=== PATIENT | male | born 1965 | race Caucasian/White ===

== ENCOUNTER → 2016-10-05 15:04 | Outpatient (CLI) | payer OTHER ==
[2015-11-18 08:41] VITALS: BMI 34.6
[~2016-10-05 15:04] MED LIST: ANDROGEL150 GM TP; ATRIPLA TABLET1 TAB PO; BYSTOLIC5 MG PO; FLUTICASONE PRO16 GM NASAL; NORVASC10 MG PO; REVATIO20 MG PO
== END | disposition home or self-care (01) ==
LOC: D.LABREF 15:04
DX: E29.1 Testicular hypofunction (principal)

== ENCOUNTER → 2017-03-13 10:47 | Outpatient (CLI) | payer OTHER ==
--- NOTE | ~2017-03-13 | HEMODYNAMI ---
PATIENT:SOILA HAQ MEDICAL RECORD: [id number] : 65 LOCATION:[facility] ADMISSION DATE: 03/13/17 Generatedon:03/13/201713:47 Patient name: SOILA HAQ Patient #: [id number] SSN: : 1965 Date of study: 03/13/2017 Page: Of Hemodynamic Procedure Report Patient Data Patient Demographics Procedure consent was obtained First Name: SOILA Gender: Male Last Name: EUN : 1965 Middle Initial: FLORA Age: 52 year(s) Patient #: [id number] Race: Unknown Additional ID: [id number] Contact details Address: [address] [place] [address] State: [place] City: [place] Zip code: [address] Past Medical History Allergies: No known allergies Admission Admission Data Admission Date: 03/13/2017 Admission Time: 10:47 Procedure Procedure Types Cath Procedure Diagnostic Procedure Right Heart RHC and LHC w/Coronaries Miscellaneous Procedures Moderate Sedation up to 45 minutes Procedure Description Procedure Date Procedure Date: 03/13/2017 Procedure Start Time: 13:15 Procedure End Time: 13:43 Procedure Staff Name Function Alex Damian RN Chemical Processing Technician Jefe Quiñonez MD Performing Physician Luis Ovalle RN Nurse Eugene Naranjo RT Scrub Marbella Ribera RT Monitor Carlie Counts RT Monitor Procedure Data Cath Procedure Fluoroscopy Diagnostic fluoroscopy Total fluoroscopy Time: 8.9 time: 8.9 min min Diagnostic fluoroscopy Total fluoroscopy dose: dose: 1147 mGy 1147 mGy Contrast Material Contrast Material Type Amount (ml) Isovue 300 73 Entry Location Entry Primary Successful Side Size Upsize Upsize Entry Closure Anne ccessful Closure Location (Fr) 1 (Fr) 2 (Fr) Remarks Device Remarks Femoral Right 7 Fr Manual vein Short Compression Femoral Right 5 Fr Exoseal artery Estimated blood loss: 10 ml Diagnostic catheters Device Type Used For End Catheter Placement Waite Lifesciences 7Fr Right heart cath Monroe Thermodilution tangela Cordis 5Fr JL 4.0 Procedure Catheter (MP) Cordis 5Fr 3DRC Catheter Procedure (MP) Cordis 5Fr Pigtail Procedure Catheter (MP) Procedure Complications No complications Procedure Medications Medication Administration Route Dosage 0.9% NaCl I.V. 100 ml/hr Oxygen NC 2 l/min Heparin Flush Bag added to field 2 bags (1000units/500ml NS) Lidocaine 2% added to field 20 Versed I.V. 1 mg Fentanyl I.V. 50 mcg Versed I.V. 1 mg Fentanyl I.V. 50 mcg Hemodynamics Rest Heart Rate: 104 (bpm) Pressure Samples Time Site Value (mmHg) Purpose Heart Use Rate(bpm) 13:24 PA 78/45(59) Snapshot 110 13:30 RV 74/9,8 Snapshot 103 13:30 RA 23/23(20) Snapshot 108 13:36 LV 114/2,15 Snapshot 104 13:37 LV 121/6,13 Pullback 104 13:37 AO 107/85(94) Pullback 104 Gradients Valve Time Site 1 Site 2 Mean SEP/DFP Peak To Heart Use (mmHg) (sec/min) Peak Rate (mmHg) (bpm) Aortic 13:37 LV AO 17 11 14 104 121/6,13 107/85(94) Calculations Valve P-P Mean Valve Index Valve Source Name Gradient Area Flow (cm2) Aortic 14 17 14 17 Snapshots Pre Cath Intra NCS Post Cath Vital Signs Time Heart Resp SPO2 etCO2 NIBP (mmHg) Rhythm Pain Sedation Rate (ipm) (%) (mmHg) Status Level (bpm) 13:01:16 110 19 96 25.3 140/89(111) A-Flutter 0 (11) 10(A) , No pain 13:05:58 108 21 97 29.8 121/86(106) A-Flutter 0 (11) 10(A) , No pain 13:10:43 102 16 93 13.4 134/77(88) A-Flutter 0 (11) 10(A) , No pain 13:15:25 103 14 92 27.6 125/77(116) A-Flutter 0 (11) 10(A) , No pain 13:20:10 106 17 92 28.3 116/72(95) A-Flutter 0 (11) 9(A) , No pain 13:24:49 105 16 96 25.3 127/92(109) A-Flutter 0 (11) 9(A) , No pain 13:29:33 105 16 94 23.1 112/80(105) A-Flutter 0 (11) 9(A) , No pain 13:34:12 100 17 94 27.6 122/87(113) A-Flutter 0 (11) 9(A) , No pain 13:38:57 105 16 94 28.3 126/80(102) A-Flutter 0 (11) 9(A) , No pain 13:43:37 106 16 96 28.3 127/85(104) A-Flutter 0 (11) 9(A) , No pain Medications Time Medication Route Dose Verified Delivered Reason Notes Effe ctiveness by by 12:58:45 0.9% NaCl I.V. 100 Luis Lusi Per ml/hr Yamile Ovalle physician RN RN 12:59:00 Oxygen NC 2 Luis Luis Per l/min Yamile Ovalle physician RN RN 13:03:34 Heparin Flush added 2 Luis Luis used for Bag to bags Lorigan Lorigan procedure (1000units/500ml RN RN NS) 13:03:48 Lidocaine 2% added 20ml Luis Luis for local to vial Lorigan Lorigan anesthetic RN RN 13:04:01 Versed I.V. 1 mg Luis Luis for Lorigan Lorigan sedation RN RN 13:04:11 Fentanyl I.V. 50 Luis Luis for mcg Lorigan Lorigan sedation RN RN 13:14:30 Versed I.V. 1 mg Luis Luis for Lorigan Lorigan sedation RN RN 13:38:46 Fentanyl I.V. 50 Luis Luis for mcg Lorigan Lorigan sedation RN resident care manager rn Log Time Note 12:48:31 Alex Damian RN sent for patient. Start room use. 12:48:32 Time tracking: Regular hours 12:48:36 Plan of Care:Hemodynamics will remain stable., Cardiac rhythm will remain stable., Comfort level will be maintained., Respiratory function will remain adequate., Patient/ family verbilizes understanding of procedure., Procedure tolerated without complication., Recovers from procedure without complications.. 12:51:13 Patient received from Pre/Post Procedure Room to CCL 1 Alert and oriented. Tansferred to table in Supine position. 12:51:15 Correct patient and procedure confirmed by team. 12:51:15 Warm blankets applied, and kvng hugger turned on for patient comfort. 12:51:18 Signed procedure consent form obtained from patient. 12:51:19 ECG and BP/O2 sat monitors applied to patient. 12:58:17 Vital chart was started 12:58:20 Baseline sample Acquired. 12:58:37 Rhythm: sinus tachycardia 12:58:39 Full Disclosure recording started 12:58:45 0.9% NaCl 100 ml/hr I.V. was administered by Luis Ovalle RN; Per physician; 12:59:00 Oxygen 2 l/min NC was administered by Luis Ovalle RN; Per physician; 12:59:05 H&P Date Dictated: 03/06/2017 Within 30 days and on chart., H&P Addendum completed by physician on day of procedure. (MUST COMPLETE FOR ALL OUTPATIENTS). 12:59:06 Pre-procedure instructions explained to patient. 12:59:07 Pre-op teaching completed and patient verbalized understanding. 12:59:15 Family in waiting room. 12:59:44 Patient NPO since Midnight. 12:59:49 Is the patient allergic to Iodine/contrast media? No. 12:59:59 Patient allergic to No known allergies 13:00:08 Is patient on blood thinner?Yes 13:00:12 ACC The patient was administered the following blood thiners within the last 24 hours: ACCPradaxa 13:00:14 Patient diabetic? No. 13:00:19 Previous problem with sedation/anesthesia? No ? 13:00:20 Snore? No 13:00:21 Sleep apnea? No 13:00:22 Deviated septum? No 13:00:24 Opens mouth fully? Yes 13:00:25 Sticks out tongue? Yes 13:00:27 Airway obstruction? No ? 13:00:29 Dentures? No ? 13:00:33 Pre procedure: right dorsailis pedis pulse 1+ Palpable, but thready & weak; easily obliterated 13:01:07 IV patent on arrival in right wrist with 0.9% NaCl at [facility]. 13:01:13 Lab results completed and on chart. 13:01:18 Alarms reviewed by R. N. 13:01:18 Right groin area was prepped with chlora-prep and draped in sterile fashion 13:01:19 Sharps counted by scrub and verified by R.N. 13::20 Physician arrived 13:: --------ALL STOP TIME OUT------ 13:: Final Timeout: patient, procedure, and site verified with staff and physician. All members of the team are in agreement. 13::24 Right groin site verified by team. 13::28 Physical assessment completed. ASA score P 2 - A patient with mild systemic disease as per Jefe Quiñonez MD. 13:01:32 Sedation plan: IV Moderate Sedation Versed, Fentanyl 13:02:16 Use device set Femoral Dx 13:02:18 Tegaderm 4 x 4 opened to sterile field. 13:02:19 Acist Manifold opened to sterile field. 13:02:20 Acist Hand Control opened to sterile field. 13:02:21 Bag Decanter opened to sterile field. 13:02:21 Acist Syringe opened to sterile field. 13:02:22 Terumo 5Fr Windom Sheath opened to sterile field. 13:02:22 Medline Cath Pack opened to sterile field. 13:02:24 St Shahram 260cm J .035 wire opened to sterile field. 13:02:25 Diagnostic Infinity 5Fr Multipack catheter opened to sterile field. 13:03:03 Merit Prelude Femoral Sheath (NO COST SUPPLY) opened to sterile field. 13:03:34 Heparin Flush Bag (1000units/500ml NS) 2 bags added to field was administered by Luis Ovalle RN; used for procedure; 13:03:48 Lidocaine 2% 20ml vial added to field was administered by Luis Ovalle RN; for local anesthetic; 13:04:01 Versed 1 mg I.V. was administered by Luis Ovalle RN; for sedation; 13:04:11 Fentanyl 50 mcg I.V. was administered by Luis Ovalle RN; for sedation; 13:11:40 Zero performed for pressure channel P1 13:11:46 Zero performed for pressure channel P1 13:13:28 Procedure started. 13:14:30 Versed 1 mg I.V. was administered by Luis Ovalle RN; for sedation; 13:15:34 Local anesthetic to right femoral vein with Lidocaine 2% by Jefe Quiñonez MD.INITIAL ACCESS ONLY 13:17:23 A 7 Fr Short sheath was inserted into the Right Femoral vein 13:20:35 A 5 Fr sheath was inserted into the Right Femoral artery 13:21:38 A PhotoSolar 7Fr Monroe Thermodilution tangela was advanced over the wire and used for Right heart cath. 13:22:43 St Shahram 150cm J .025 wire opened to sterile field. 13:30:40 Catheter removed. 13:31:43 A Cordis 5Fr JL 4.0 Catheter (MP) was advanced over the wire and used for Procedure. 13:32:03 LCA angiography performed. 13:33:07 Catheter exchanged over wire. 13:33:47 A Cordis 5Fr 3DRC Catheter (MP) was advanced over the wire and used for Procedure. 13:34:24 RCA angiography performed. 13:35:02 Catheter exchanged over wire. 13:36:00 A Cordis 5Fr Pigtail Catheter (MP) was advanced over the wire and used for Procedure. 13:36:19 LV gram done using LINN 13:37:17 EF : 45 % 13:37:18 LV hemodynamics recorded. 13:37:21 Injector settings: Ml/sec: 10, Volume: 20, 13:37:32 Catheter removed. 13:37:55 Cordis 5Fr Exoseal opened to sterile field. 13:38:06 Sheath removed intact; hemostasis achieved with Exoseal to the Right Femoral artery. 13:38:26 Sheath removed intact; hemostasis achieved with Manual Compression to the Right Femoral vein. 13:38:39 Procedure ended.(Physican Out) 13:38:45 Fluoroscopy time 08.90 minutes. 13:38:46 Fentanyl 50 mcg I.V. was administered by Luis Ovalle RN; for sedation; 13:38:49 Fluoroscopy dose: 1147 mGy 13:38:49 Flurop Dose total: 1147 13:38:54 Contrast amount:Isovue 300 73ml. 13:38:56 Sharps counted by scrub and verified by R.N. 13:39:00 Insertion/operative site no bleeding no hematoma. 13:39:08 Post-op/insertion site Right Femoral artery dressed using a 4 x 4 and Tegaderm. 13:39:28 Post Procedure Pulses reassessed and unchanged 13:39:33 Post-procedure physical assessment completed. ASA score P 2 - A patient with mild systemic disease as per Jefe Quiñonez MD. 13:39:38 Post procedure rhythm: unchanged. 13:39:41 Estimated blood loss: 10 ml 13:39:49 Patient needs reinforcement of post procedure teaching. 13:39:49 Post procedure instruction explained to patient.Patient verbalizes understanding. 13:40:11 Procedure type changed to Cath procedure, Diagnostic procedure, Right Heart, RHC and LHC w/Coronaries, Miscellaneous Procedures, Moderate Sedation up to 45 minutes 13:42:34 Procedure and supply charges have been captured, reviewed, submitted and are correct. 13:42:39 Procedure Complication : No complications 13:43:27 Vital chart was stopped 13:43:31 See physician's report for complete and final results. 13:43:34 Report given to Pre/Post Procedure Room. 13:43:37 Patient transfered to Pre/Post Procedure Room with Stretcher. 13:43:45 Full Disclosure recording stopped 13:43:45 Procedure ended. 13:43:50 End room use (Document Last) Device Usage Item Name Manufacture Quantity Catalog Hospital Part Current Minima l Lot# / Number Charge Number Stock Stock Serial# Code Tegaderm 4 x 4 3M 1 [id number] 5 Acist Manifold Acist 1 92295 652837 982351 836953 5 Medical Systems Inc Acist Hand Acist 1 57190 312837 040689 249532 5 Control Medical Systems Inc Acist Syringe Acist 1 27159 258709 899502 398655 20 Medical Systems Inc Bag Decanter Microtek 1 2001S 630559 00452 862867 5 Medical Inc. Medline Cath Cardinal 1 [id number] 18340 386905 5 Pack Health Terumo 5Fr Terumo 1 [id number] 930836 343484 465400 [address] Shahram [address] St Shahram 1 088007 557747 830054 704123 30 J .035 wire Diagnostic Cardinal 1 [id number] 214827 54188 260308 30 Infinity 5Fr Health Multipack catheter Merit Prelude Merit 1 754765 467842 5 Femoral Sheath Medical (NO COST SUPPLY) Waite Waite 1 [id number] 412731 64915 119487 3 [facility] Lifesciences 7Fr Monroe Thermodilution tangela [address] Shahram 150cm St Shahram 1 [id number] 254722 791492 220423 2 J .025 wire Cordis 5Fr JL Cardinal 1 792116 5 4.0 Catheter Health () Cordis 5Fr Cardinal 1 378759 5 3DRC Catheter Health () Cordis 5Fr Cardinal 1 806418 5 Pigtail Health Catheter () Cordis 5Fr Cardinal 1 EX500 808400 966539 870706 10 [facility] Signature Audit [place] Stage Time Signature Unsigned Intra-Procedure 03/13/2017 Marbella Ribera 1:47:01 PM RT(R) Signatures Monitor : Marbella Ribera Signature : RT Date : Time : Monitor : Carlie Signature : Counts RT Date : Time : [place] [address] [place] [address]
[~2017-03-13 10:47] MED LIST changes: +BETAPACE 80 MG80 MG PO; +EMTRIVA200 MG PO; +K-TAB10 MEQ PO; +LASIX40 MG PO; +PRADAXA150 MG PO; +SUSTIVA600 MG PO; +VIREAD300 MG PO
[2017-03-13 11:33] VITALS: BP 120/90; BMI 39.1
[2017-03-13 11:36] LABS: BASOPHILS 0.4 % (0-2); HEMATOCRIT 47.8 % (42.0-54.0); HEMOGLOBIN 16.3 g/dL (13.5-17.5); IMMATURE GRANULOCYTES 0.3 % (0-5); LYMPHOCYTES 23.2 % (15-50); MCH 33.8 pg (26.0-34.0); MCHC 34.1 g/dL (31.0-37.0); MCV 99.2 fL (80.0-100.0); MEAN PLATELET VOLUME 9.3 fL (7.4-10.4); MONOCYTES 7.8 % (2-11); NEUTROPHILS 67.3 % (40-80); PLATELET COUNT 219 10x3/uL (130-400); RBC 4.82 10x6/uL (4.20-6.10); RDW 13.4 % (11.5-14.5)
[2017-03-13 11:56] LABS: INR 1.21 (0.85-1.17); PROTIME 15.2 SECONDS (11.6-15.0)
[2017-03-13 12:15] LABS: ANION GAP 13.8 mmol/L (8-16); CALCIUM 8.7 mg/dL (8.5-10.1); CARBON DIOXIDE 22.9 mmol/L (21.0-32.0); CREATININE - SERUM 1.2 mg/dL (0.6-1.3); POTASSIUM - SERUM 4.7 mmol/L (3.5-5.1)
--- NOTE | 2017-03-13 14:05 | NUR ---
1400 RECEIVED PT FROM CREDIT CARD ASSOCIATE. PT IS ALERT, DENIES ANY C/O CHEST PAIN OR NAUSEA. DRESSING TO RIGHT GROIN IS CDI, AREA IS SOFT AND NONTENDER. PEDAL PULSES PALPABLE. IV PATENT AND INFUSING PER ORDERS. ATRIAL FLUTTER PER MONITOR WITH RATE OF 108. PT INSTRUCTED TO KEEP HEAD TO PILLOW AND RIGHT LEG STRAIGHT AND VERBALIZES UNDERSTANDING. CALL LIGHT IN REACH. NO FAMILY AT BEDSIDE AT THIS TIME.
--- NOTE | 2017-03-13 14:14 | NUR ---
DRESSING TO RIGHT GROIN IS CDI, AREA IS SOFT AND NONTENDER. PEDAL PULSES PALPABLE. DENIES ANY C/O AT THIS TIME, CALL LIGHT IN REACH.
--- NOTE | 2017-03-13 14:28 | NUR ---
1430 DRESSING REMAINS CDI, AREA SOFT AND NONTENDER. DENIES ANY C/O. PEDAL PULSES PALPABLE. CALL LIGHT IN REACH.
--- NOTE | 2017-03-13 14:48 | NUR ---
1445 DRESSING REMAINS CDI, GROIN SOFT AND NONTENDER. PEDAL PULSES PALPABLE. DENIES ANY C/O. CALL LIGHT IN REACH.
--- NOTE | 2017-03-13 15:06 | NUR ---
1500 DRESSING REMAINS CDI, AREA SOFT AND NONTENDER. PEDAL PULSES PALPABLE. PT DENIES ANY C/O OR NEEDS. CALL LIGHT IN REACH.
--- NOTE | 2017-03-13 15:34 | NUR ---
1530 PO FLUIDS SERVED. DRESSING REMAINS CDI, AREA SOFT AND NONTENDER. VSS. CALL LIGHT IN REACH.
--- NOTE | 2017-03-13 15:53 | NUR ---
HOB ELEVATED AND SANDWICH SERVED. PT DENIES ANY C/O. DRESSING REMAINS CDI, AREA SOFT AND NONTENDER. VSS. A-FLUTTER ON MONITOR. DENIES ANY C/O CHEST DISCOMFORT.
--- NOTE | 2017-03-13 16:18 | NUR ---
DC INSTRUCTIONS REVIEWED [facility] PT WHO VERBALIZES UNDERSTANDING. IV DC'D WITH CATH INTACT. PT HAS DEON SANDWICH WITH NO C/O NAUSEA. PT DRESSING FOR DC TO HOME.
--- NOTE | 2017-03-13 16:35 | NUR ---
1630 DRESSING TO RIGHT GROIN REMAINS CDI. ESCORTED PT TO THE BATHROOM VIA WC AND PT VOIDED QS. PT ESCORTED TO PRIVATE AUTO VIA WC BY NURSE WTIH UNCLE DRIVING HIM HOME. PT DENIES ANY C/O UPON DC TO HOME.
== END | disposition home or self-care (01) ==
LOC: D.CATH 10:47
PROVIDERS: Internal Medicine Cardiovascular Disease
DX: I27.20 Pulmonary hypertension, unspecified (principal); Z01.812 Encounter for preprocedural laboratory examination

== ENCOUNTER → 2017-04-03 10:18 | Outpatient (CLI) | payer OTHER ==
[~2017-04-03] VITALS: Ht 180.3 cm; Wt 131.8 kg
--- NOTE | ~2017-04-03 | HEMODYNAMI ---
PATIENT:SOILA HAQ MEDICAL RECORD: [id number] : 65 LOCATION:[facility] ADMISSION DATE: 04/03/17 Generatedon:04/03/201713:04 Patient name: SOILA HAQ Patient #: [id number] SSN: : 1965 Date of study: 04/03/2017 Page: Of Hemodynamic Procedure Report Patient Data Patient Demographics Procedure consent was obtained First Name: SOILA Gender: Male Last Name: EUN : 1965 Middle Initial: FLORA Age: 52 year(s) Patient #: [id number] Race: Unknown Additional ID: [id number] Contact details Address: [address] [place] [address] State: [place] City: [place] Zip code: [address] Past Medical History Allergies: No known allergies Admission Admission Data Admission Date: 04/03/2017 Admission Time: 10:18 Admit Source: Other Lab Results Lab Result Date: 04/03/2017 Lab Result Time: 11:00 Biochemistry Name Units Result Min Max BUN mg/dl 25 --(----)-* 7 18 Creatinine mg/dl 1.1 --(--*-)-- 0.6 1.3 CBC Name Units Result Min Max Hematocrit % 48 --(-*--)-- 42 54 Hemoglobin g/dl 16 --(--*-)-- 13.5 17.5 Procedure Procedure Types Cath Procedure Diagnostic Procedure Cardioversion MAURI Procedure Description Procedure Date Procedure Date: 04/03/2017 Procedure Start Time: 12:07 Procedure Staff Name Function Irving Bateman MD Performing Physician Eugene Naranjo RT Monitor Leandro Cardenas Process Excellence Manager Meena Flores RN Nurse Viktor Olmedo CRNA Additional personnel Procedure Data Cath Procedure Fluoroscopy Diagnostic fluoroscopy Total fluoroscopy Time: 0 time: 0 min min Diagnostic fluoroscopy Total fluoroscopy dose: 0 dose: 0 mGy mGy Contrast Material Contrast Material Type Amount (ml) Isovue 300 0 Estimated blood loss: 0 ml Procedure Complications No complications Procedure Medications Medication Administration Route Dosage Oxygen NC 2 l/min Hurricaine [place] P.O. 1 Sprays unlisted medication 10 ml Refer to Anesthesia Notes for Sedation Medications Hemodynamics Rest HGB: 16 (g/dl) Heart Rate: 110 (bpm) Snapshots Pre Cath Intra NCS Post Cath Vital Signs Time Heart Resp SPO2 etCO2 NIBP (mmHg) Rhythm Pain Sedation Rate (ipm) (%) (mmHg) Status Level (bpm) 12:32:37 110 28 97 25.7 111/81(100) NSR 0 (11) 10(A) , No pain 12:36:55 107 11 96 23.4 119/86(105) NSR 0 (11) 10(A) , No pain 12:41:15 111 27 96 17.3 116/74(92) NSR 0 (11) 10(A) , No pain 12:47:18 128 30 93 12.1 92/76(85) NSR 0 (11) 9(A) , No pain 12:53:00 95 26 96 5.2 90/78(87) NSR 0 (11) 10(A) , No pain Medications Time Medication Route Dose Verified Delivered Reason Notes Effective ness by by 12:41:15 Oxygen NC 2 Irving Robledo used for l/min St. Soila Flores RN procedure 12:41:26 Hurricaine P.O. 1 Irving Robledo used for Coldwater Sprays St. Soila Flores RN procedure 12:41:51 visc. gargle 10 ml Irving Robledo lidocaine St. Soila ferrara MD 12:41:55 Refer to Irving Robledo Anesthesia St. Soila Flores RN Notes for Sedation Medications Procedure Log Time Note 12:08:05 Informed consent obtained and on chart 12:08:25 Admit Source: Other 12:08:52 Meena Flores RN sent for patient. Start room use. 12:08:53 Time tracking: Regular hours 12:08:57 Plan of Care:Hemodynamics will remain stable., Cardiac rhythm will remain stable., Comfort level will be maintained., Respiratory function will remain adequate., Patient/ family verbilizes understanding of procedure., Procedure tolerated without complication., Recovers from procedure without complications.. 12:21:27 Patient received from Pre/Post Procedure Room to [facility] 2 Alert and oriented. Tansferred to table in Supine position. 12:21:28 Warm blankets applied, and kvng hugger turned on for patient comfort. 12:21:29 Correct patient and procedure confirmed by team. 12:21:30 ECG and BP/O2 sat monitors applied to patient. 12:21:39 H&P Date Dictated: 03/06/2017 Within 30 days and on chart., H&P Addendum completed by physician on day of procedure. (MUST COMPLETE FOR ALL OUTPATIENTS). 12:21:40 Pre-procedure instructions explained to patient. 12:21:41 Pre-op teaching completed and patient verbalized understanding. 12:21:42 Family in waiting room. 12:21:45 Patient NPO since Midnight. 12:21:55 Patient allergic to No known allergies 12:21:59 Is the patient allergic to Iodine/contrast media? No. 12:28:17 Is patient on blood thinner?No 12:29:51 Patient diabetic? No. 12:29:55 Previous problem with sedation/anesthesia? No ? 12:29:56 Snore? No 12:29:57 Sleep apnea? No 12:29:58 Deviated septum? No 12:29:58 Opens mouth fully? Yes 12:29:59 Sticks out tongue? Yes 12:30:01 Airway obstruction? No ? 12:30:02 Dentures? No ? 12:30:07 Quick Combo opened to sterile field. 12:30:14 IV patent on arrival in left hand with 0.9% NaCl at [facility]. 12:30:42 Lab Result : BUN 25 mg/dl 12:30:42 Lab Result : Creatinine 1.1 mg/dl 12:30:42 Lab Result : Hemoglobin 16 g/dl 12:30:42 Lab Result : Hematocrit 48 % 12:30:44 Lab results completed and on chart. 12:30:52 Alarms reviewed by RMindy NMindy 12:30:57 Viktor Olmedo CRNA present and monitoring patient for TIVA. 12:31:03 Quick combo pads placed on patients chest and back. 12:31:05 Leandro Cardenas Aircraft Skin Burnisher present for MAURI. 12:31:24 Vital chart was started 12:31:25 Baseline sample Acquired. 12:35:33 Rhythm: atrial flutter 12:36:58 Physician arrived 12:36:58 --------ALL STOP TIME OUT------ 12:36:59 Final Timeout: patient, procedure, and site verified with staff and physician. All members of the team are in agreement. 12:37:02 Physical assessment completed. ASA score P 2 - A patient with mild systemic disease as per Irving Bateman MD. 12:37:05 Sedation plan: TIVA Medication:Propofol 12:41:15 Oxygen 2 l/min NC was administered by Meena Flores RN; used for procedure; 12:41:26 Hurricaine [place] 1 Sprays P.O. was administered by Meena Flores RN; used for procedure; 12:41:51 visc. lidocaine gargle 10 ml gargle was administered by Meena Flores RN; ; 12:41:55 Refer to Anesthesia Notes for Sedation Medications was administered by Meena Flores RN; ; 12:42:00 MAURI started. 12:46:03 MAURI completed. 12:48:46 Defibrillator synced and charged to 200 Joules. 12:48:55 Shock delivered. 12:49:16 Patient cardioverted to sinus rhythm . 12:49:23 Procedure ended.(Physican Out) 12:49:31 Fluoroscopy time 00.00 minutes. 12:51:15 Flurop Dose total: 0 12:51:15 Fluoroscopy dose: 0 mGy 12:51:17 Contrast amount:Isovue 300 0ml. 12:51:18 Sharps counted by scrub and verified by R.N. 12:51:31 Post-procedure physical assessment completed. ASA score P 2 - A patient with mild systemic disease as per Irving Bateman MD. 12:51:33 Post procedure rhythm: sinus rhythm 12:51:35 Estimated blood loss: 0 ml 12:51:37 Post procedure instruction explained to patient.Patient verbalizes understanding. 12:51:37 Patient needs reinforcement of post procedure teaching. 12:52:48 Procedure and supply charges have been captured, reviewed, submitted and are correct. 12:52:51 Procedure Complication : No complications 12:52:53 Vital chart was stopped 12:52:54 See physician's report for complete and final results. 12:52:56 Report given to Pre/Post Procedure Room. 12:52:59 Patient transfered to Pre/Post Procedure Room with Stretcher. 13:02:23 End room use (Document Last) Device Usage Item Manufacture Quantity Catalog Hospital Part Current Minimal Lot# / Name Number Charge Number Stock Stock Seri al# Code [facility] 1 [id number] 5 Combo Signature Audit [place] Stage Time Signature Unsigned Intra-Procedure 04/03/2017 Eugene Naranjo 1:04:08 PM RT(R) Signatures Monitor : Eugene Naranjo RT Signature : Date : Time : [place] [id number] [place] [address]
[2017-04-03 11:04] LABS: BASOPHILS 0.4 % (0-2); IMMATURE GRANULOCYTES 0.3 % (0-5); LYMPHOCYTES 21.3 % (15-50); MCH 33.3 pg (26.0-34.0); MCHC 33.3 g/dL (31.0-37.0); MEAN PLATELET VOLUME 9.4 fL (7.4-10.4); MONOCYTES 6.8 % (2-11); NEUTROPHILS 70.2 % (40-80); PLATELET COUNT 185 10x3/uL (130-400); RDW 13.5 % (11.5-14.5); WBC 7.9 10x3/uL (4.8-10.8)
[2017-04-03 11:07] VITALS: BP 118/62; Ht 180.3 cm; Wt 131.8 kg
[2017-04-03 11:12] LABS: INR 1.02 (0.85-1.17); PROTIME 13.3 SECONDS (11.6-15.0)
[2017-04-03 11:17] LABS: ANION GAP 14.2 mmol/L (8-16); CALCIUM 7.9 mg/dL (8.5-10.1); CARBON DIOXIDE 21.3 mmol/L (21.0-32.0); CREATININE - SERUM 1.1 mg/dL (0.6-1.3); POTASSIUM - SERUM 4.5 mmol/L (3.5-5.1)
--- NOTE | 2017-04-03 13:16 | NUR ---
RECIEVED BACK TO ROOM WITH REPORTS OF ONE SHOCK AT 200 WITH CONVERSION TO SINUS. PATIENT ALERT AND TALKING DENIED PAIN OR NEEDS VSS
--- NOTE | 2017-04-03 13:26 | NUR ---
MJ WITH HOB UP 45 DEGREES WATCHING TV VOICED NO PAIN OR DISTRESS AT THIS TIME REMAINS SR
--- NOTE | 2017-04-03 13:57 | NUR ---
SANDWICH AND WATER TO BEDSIDE WITH PATIENT TOLERATING WELL. REMAINS IN SR WITH NO DISTRESS
--- NOTE | 2017-04-03 14:08 | NUR ---
PIV REMOVED WITH DRESSING APPLIED. PATIENT UP TO GET DRESSED FOR DISCHARGE HOME REMAINS IN SR
--- NOTE | 2017-04-03 14:13 | NUR ---
VERBAL AND WRITTEN DISCHARGE GONE OVER WITH PATIENT. LEFT VIA WC TO PARKING FOR TRANSPORT HOME REMAINS IN SR
--- NOTE | 2017-04-10 13:00 | TEE ---
PATIENT:SOILA HAQ MEDICAL RECORD: [id number] LOCATION:[facility] AGE OF PATIENT: 52 ADMISSION DATE: 04/03/17 SEX: M REFERRING PHYSICIAN: INTERPRETING PHYSICIAN: ISAURA EARL MD TRANSESOPHAGEAL ECHOCARDIOGRAM MAURI CHARGE INDICATIONS: PREMEDICATIONS: PATIENT'S RESPONSE PROCEDURE DOPPLER MEASUREMENTS: LVIT LA PA RA LVOT RVOT Asc. Ao AV Gradient Peak AV Mean AV Area MV Gradient Peak MV Mean MV Area INTERPRETATION: Doppler: 2-D: COLOR FLOW DOPPLER NORMAL SALINE STUDY: MISCELLANOUS: DIAGNOSIS: PLAN: Senior Physical Therapist: Cardiovascular Lab Director: COMMENTS: DATE OF SERVICE: 04/03/2017 Transesophageal echocardiograph study as well as cardioversion. DESCRIPTION OF PROCEDURE: After general sedation via TIVA via anesthesia, transesophageal Omniplane probe was placed in the distal esophagus and proximal stomach without difficulty. FINDINGS: LV internal dimensions appear normal. LV wall motion appears to be TRANSESOPHAGEAL ECHOCARDIOGRAM REPORT [id number] SOILA HAQ MO decreased with paradoxical septal motion. Overall, LV function reduced 30% to 35%. Aortic valve is tricuspid with adequate valve excursion. No significant AI. Left atrium appears normal dimensions. Left atrial appendage is well visualized without evidence of thrombus. Mitral valve appears normal with no prolapse. Trace MR. Right-sided chambers are obviously dilated, severe TR is noted. At the end of the procedure, the transesophageal Omniplane probe was turned posteriorly and this showed minimal atherosclerotic debris. IMPRESSION: Proceed with cardioversion. TRANSINT:[id number] Voice Confirmation ID: [id number] DOCUMENT ID: [id number] at 1300 CC: [id number] DICTATION DATE: 04/03/17 1254 PIG CASTING MACHINE OPERATOR: 04/03/17 1314 [facility] CLI 04/03/17 [id number] [place] [address]
--- NOTE | 2017-04-10 13:00 | OP ---
PATIENT NAME: SOILA HAQ MEDICAL RECORD: [id number] :65 LOCATION:[facility] ADMISSION DATE: SURGEON: ISAURA EARL MD DATE OF OPERATION: 04/03/2017 PROCEDURE: Cardioversion. DESCRIPTION OF PROCEDURE: General sedation anesthesia via TIVA. Single shock was successful in restoring atrial flutter to normal sinus rhythm. IMPRESSION: Successful cardioversion. COMPLICATIONS: None. TRANSINT:[id number] Voice Confirmation ID: [id number] DOCUMENT ID: [id number] ISAURA EARL MD at 1300 CC: [id number] DICTATION DATE: 04/03/17 1255 REEL FILM INSPECTOR: 04/03/17 1307 [facility] CLI 04/03/[address] [address]
== END | disposition home or self-care (01) ==
LOC: D.CATH 10:18
PROVIDERS: Internal Medicine Cardiovascular Disease
DX: I48.92 Unspecified atrial flutter (principal); Z01.812 Encounter for preprocedural laboratory examination